=== PATIENT | female | born 1995 | race Asian ===

== ENCOUNTER 2019-06-19 14:44 | Emergency (ER) | payer OTHER ==
[~2019-06-19] VITALS: Ht 162.6 cm; Wt 69.6 kg
[2019-06-19 14:55] VITALS: BP 135/97
--- NOTE | 2019-06-19 14:59 | NUR ---
PT AMBULATES BACK TO THE LOBBY W/ HER MOTHER. PT RECENTLY CAME BACK FROM [facility] ON 05/20/2019
--- NOTE | 2019-06-19 15:10 | NUR ---
24 YO FEMALE CO UPPER EPIGASTRIC PAIN THAT COMES AND GOES CHRONICALLY. PT STATES THAT THERE IS FAMILY HX OF GALLSTONES. PT DENIES N/V BUT HAS HAD LOOSE STOOL. BS ACTIVE IN ALL 4 QUADS. ABD IS SOFT AND NON DISTENDED. PAIN IS 1/10 RIGHT NOW BUT THE PAIN WILL COME AND GO. PT RETURNED FROM [facility] ON 05/20
--- NOTE | 2019-06-19 15:55 | NUR ---
lab at bedside
--- NOTE | 2019-06-19 16:04 | NUR ---
us at bedside
[2019-06-19 16:21] LABS: BASOPHILS # (AUTO) 0.1 K/uL (0.00-0.22); BASOPHILS % (AUTO) 1.3 % (0.0-2.0); EOSINOPHILS # (AUTO) 0.1 K/uL (0-0.4); EOSINOPHILS % (AUTO) 1.9 % (0.0-4.0); HEMATOCRIT 39.4 % (36-48); HEMOGLOBIN 13.3 g/dL (12.0-16.0); LYMPHOCYTES # (AUTO) 1.6 K/uL (2.5-16.5); LYMPHOCYTES % (AUTO) 31.9 % (20.5-51.1); MEAN CORPUSCULAR HEMOGLOBIN 32 pg (27-31); MEAN CORPUSCULAR HGB CONC 34 g/dL (33-37); MEAN CORPUSCULAR VOLUME 94.1 fL (80-94); MONOCYTES # (AUTO) 0.1 K/uL (0.8-1.0); NEUTROPHILS % (AUTO) 61.9 % (42.2-75.2); PLATELET COUNT (AUTO) 224 K/uL (140-450); RED BLOOD CELL COUNT(AUTO) 4.19 MIL/uL (4.20-5.40); RED CELL DISTRIBUTION WIDTH 12.8 % (11.6-13.7); WHITE BLOOD COUNT (AUTO) 4.9 K/uL (4.8-10.8)
--- NOTE | 2019-06-19 16:36 | NUR ---
PT AWAKE AND ALERT IN BED. PAIN 04/19. MOTHER AT BEDSIDE.
[2019-06-19 16:39] LABS: ALBUMIN 4.1 g/dL (3.4-5.0); ANION GAP 10.1 (8-16); CARBON DIOXIDE 31.2 mmol/L (21-32); CREATININE 0.8 mg/dL (0.6-1.3); POTASSIUM 3.3 mmol/L (3.5-5.1); TOTAL BILIRUBIN 0.5 mg/dL (0.0-1.0)
[2019-06-19 17:36] VITALS: BP 135/97
--- NOTE | 2019-06-19 17:37 | NUR ---
Patient discharged with v/s stable. Written and verbal after care instructions given and explained. Patient alert, oriented and verbalized understanding of instructions. Ambulatory with steady gait. All questions addressed prior to discharge. ID band removed. Patient advised to follow up with PMD. Rx of ZOFRAN AND NORCO given. Patient educated on indication of medication including possible reaction and side effects. Opportunity to ask questions provided and answered.
== END 2019-06-19 17:37 | disposition home or self-care (01) ==
LOC: MED 14:44
DX: K80.80 Other cholelithiasis without obstruction (principal); R11.0 Nausea
CPT/HCPCS: 36415; 76705; 80053; 81002; 81025; 83690; 85025; 99284; Q0092